=== PATIENT | female | born 1940 | race Caucasian/White ===

== ENCOUNTER → 2025-06-22 | Outpatient (REF) | payer MEDICARE ==
[~2025-06-22] MED LIST: ALBUTEROL SULF 0.083% NEB SOLN 3 ML NEB ONE; ASPIRIN EC81 MG PO; DIGOXIN250 MCG PO; SIMVASTATIN40 MG PO; VERAPAMIL ER240 MG PO
== END ==
LOC: RESP 14:21
PROVIDERS: ATTEND Nurse Practitioner Family
DX: R06.02 Shortness of breath (principal); R05.9 Cough, unspecified; I48.91 Unspecified atrial fibrillation; M41.9 Scoliosis, unspecified; E66.9 Obesity, unspecified
CPT/HCPCS: 94060; 94727; 94729